=== PATIENT | male | born 1975 | race Two or more races ===

== ENCOUNTER 2022-06-13 10:02 | Emergency (ER) | payer OTHER ==
[~2022-06-13] VITALS: Ht 172.7 cm; Wt 122.5 kg
[~2022-06-13 10:02] MED LIST: CIPRO500 MG PO; TAMS0.4C PO
[2022-06-13] MEDS ORDERED: COZAAR100 MG (10:15)
[2022-06-13] MEDS ORDERED: NORFLEX100MG PO (11:19)
[2022-06-13] MEDS ORDERED: NAPROXEN500 MG PO (11:19)
== END 2022-06-13 12:01 | disposition home or self-care (01) ==
LOC: ER 10:02
DX: M79.651 Pain in right thigh (principal); I10 Essential (primary) hypertension